=== PATIENT | female | born 1990 | race Caucasian/White ===

== ENCOUNTER → 2017-04-17 | Outpatient (CLI) | payer OTHER ==
[~2017-04-17] MED LIST: CHOL100010 PO; LANS30CA12 PO; RANI300T2 PO; SUCR5SUS PO
--- NOTE | 2017-04-17 11:43 | DIAGNOSTIC IMAGING REPORT ---
ULTRASOUND BILATERAL LOWER EXTREMITY VENOUS CLINICAL HISTORY: Leg pain and swelling of several weeks' duration. COMPARISON STUDY: Left lower extremity venous ultrasound dated 12/03/2013. TECHNIQUE: Real-time, grayscale, and color Doppler sonography of the deep veins of the right and left lower extremity was performed from the inguinal crease to the calf. Compression and augmentation were utilized. FINDINGS: There is no sonographic evidence of deep venous thrombosis identified in the right or left lower extremity. The common femoral, superficial femoral, and popliteal veins are patent and normally compressible bilaterally. The greater saphenous vein and the profunda femoris vein at the junction with the common femoral vein are clear in both legs. The visualized calf veins are patent bilaterally. IMPRESSION: There is no sonographic evidence of deep venous thrombosis identified in the right or left lower extremity. Electronically signed by: Marshall Sneed M.D. 04/17/2017 11:41 AM Dictated Date/Time: 04/17/2017 11:41 AM
--- NOTE | 2017-04-17 12:31 | DIAGNOSTIC IMAGING REPORT ---
ANKLE BRACHIAL INDEX COMPLETE CLINICAL HISTORY: Bilateral leg pain and swelling. COMPARISON STUDY: No previous studies for comparison. FINDINGS: The right ankle to brachial index measured 1.06 when using posterior tibial artery and 1.05 when using the dorsalis pedis. The left ankle to brachial index measured 1.08 when using posterior tibial artery and 1.03 when using the dorsalis pedis. IMPRESSION: Normal bilateral ankle to brachial indices. Electronically signed by: Mir Marcos M.D. 04/17/2017 12:30 PM Dictated Date/Time: 04/17/2017 12:29 PM
== END | disposition home or self-care (01) ==
LOC: C.ULTR 10:49
PROVIDERS: ATTEND Internal Medicine
DX: R60.0 Localized edema (principal)

== ENCOUNTER 2017-06-30 08:22 | Emergency (ER) | payer OTHER ==
[~2017-06-30] VITALS: Ht 157.5 cm; Wt 106.4 kg
[~2017-06-30 08:22] MED LIST changes: -CHOL100010 PO; +ETON1IMP2 SC; +FLVHFA110 INH; -LANS30CA12 PO; -SUCR5SUS PO; +VNTHFA/IN INH
[2017-06-30 08:23] VITALS: TEMP 36.5; Ht 157.5 cm; Wt 106.4 kg
[2017-06-30] MEDS ORDERED: MoRPHine SULFATE 4 MG/ML 1 ML CARP\\VIAL IV STA (09:05)
[2017-06-30] MEDS ORDERED: ONDANSETRON INJ 2 MG/ML 2 ML VIAL IV STA (09:05)
[2017-06-30] MEDS ORDERED: SODIUM CHLORIDE 0.9% 1000ML 1,000 ML IV STA (09:05)
--- NOTE | 2017-06-30 09:14 | EMERGENCY ROOM VISIT NOTE ---
History First contact with patient: 08:54 Chief Complaint: ABDOMINAL PAIN Stated Complaint: ABD PAIN Nursing Triage Summary: pt reports right upper quad pain for 4 days. feels nauseated. no vomiting. has diarrhea History of Present Illness The patient is a 26 year old female who presents to the Emergency Room with complaints of right upper quadrant and epigastric abdominal pain for the past 2 weeks. She reports the pain is intermittent, dull and occasionally becomes more sharp and severe, worse after eating, radiates to her right shoulder blade , currently rates as 6/10. She has associated chills, nausea, one episode of vomiting, and has been having a lot of diarrhea with this as well. She states her symptoms got significantly worse approximately 4 days ago. She denies any abdominal surgeries. She states she does not get periods due to having the Nexplanon implant, but gets regular tests and these have been negative. She denies any headaches, neck pain, fevers, chest pain, SOB, dizziness or passing out, blood in the stool or emesis, dysuria or hematuria, or rash. She reports history of GERD and states that she takes Zantac for this. Review of Systems A complete 10 point review of systems was reviewed with the patient with pertinent positives and negatives as per history of present illness. All else were negative. Past Medical/Surgical History Medical Problems: (1) Asthma (2) Asthma, Unspecified (3) Pneumonia Family History No significant family history Social History Smoking Status: Never Smoker Alcohol Use: none Drug Use: none Marital Status: Housing Status: lives with family Occupation Status: [employer] Current/Historical Medications Scheduled Etonogestrel (Nexplanon), 1 DOSE SC CONTINOUS Ranitidine (Zantac), 300 MG PO BID Sucralfate (Carafate), 10 ML PO TID Scheduled PRN Albuterol Hfa (Ventolin Hfa), 2-4 PUFFS INH Q6H PRN for Shortness of Breath Fluticasone Propionate (Flovent Hfa), 2 PUFFS INH BID PRN for Shortness of Breath Allergies Reviewed in chart Physical Exam Vital Signs Date Time Temp Pulse Resp B/P (MAP) Pulse Ox O2 Delivery O2 Flow Rate FiO2 06/30/17 14:00 68 20 106/55 97 Room Air 06/30/17 13:13 72 06/30/17 12:12 75 20 116/83 98 Room Air 06/30/17 10:25 76 18 188/82 97 Room Air 06/30/17 09:28 82 06/30/17 09:25 78 18 126/75 98 Room Air 06/30/17 08:23 36.5 80 18 129/72 99 Room Air Physical Exam CONSTITUTIONAL: No acute distress. Moderate dehydration. Well appearing and well nourished. HEENT: Normocephalic, atraumatic. Pupils equal, round and reactive to light, EOMI. TMs normal. Pharynx normal. Dry mucus membranes. NECK: Supple, full active range of motion without discomfort. RESPIRATORY: Clear to auscultation bilaterally with no wheezing, crackles, rhonchi or stridor. Equal expansion bilaterally. CARDIOVASCULAR: Regular rate and rhythm with no murmurs, rubs or gallops. Normal peripheral perfusion. No edema. GASTROINTESTINAL: Moderate tenderness in the epigastric and RUQ abdomen. No guarding or rebound tenderness. No palpable masses, no HSM. Soft and nondistended. Hyperactive bowel sounds present in all quadrants. MUSCULOSKELETAL: Full range of motion of all joints without discomfort. INTEGUMENTARY: No rash or other significant dermatologic conditions noted. NEUROLOGIC: Alert and oriented X 4 with normal affect. No focal neurologic deficits noted. Normal speech, normal gait observed. Medical Decision & Procedures ER Provider Diagnostic Interpretation: CHEST 2 VIEWS ROUTINE CLINICAL HISTORY: 26 years-old Female presenting with ABDOMINAL PAIN/GI. TECHNIQUE: PA and lateral views of the chest were obtained. COMPARISON: CTA from 09/28/2015 and chest x-ray from 09/28/2015. FINDINGS: Cardiomediastinal silhouette normal. Lungs and pleural spaces clear. Osseous structures normal. Upper abdomen normal. IMPRESSION: 1. No acute cardiopulmonary disease. ----- ABDOMINAL ULTRASOUND, RIGHT UPPER QUADRANT HISTORY: Right upper quadrant abdominal pain.. COMPARISON: Abdominal ultrasound 12/24/2015. FINDINGS: Pancreas: The pancreas demonstrates a normal echotexture. Liver: Unremarkable. Gallbladder: No gallbladder wall thickening. No gallstones. CBD: 4 mm. Right kidney: No hydronephrosis. IMPRESSION: No significant abnormality identified within the right upper quadrant. Laboratory Results 06/30/17 09:15 Red Blood Count 4.38, Mean Corpuscular Volume 87.2, Mean Corpuscular Hemoglobin 30.1, Mean Corpuscular Hemoglobin Concent 34.6, Mean Platelet Volume 9.6, Neutrophils (%) (Auto) 60.0, Lymphocytes (%) (Auto) 28.1, Monocytes (%) (Auto) 7.7, Eosinophils (%) (Auto) 3.4, Basophils (%) (Auto) 0.4, Neutrophils # (Auto) 6.06, Lymphocytes # (Auto) 2.84, Monocytes # (Auto) 0.78, Eosinophils # (Auto) 0.34, Basophils # (Auto) 0.04 06/30/17 09:15 Test 06/30/17 05:45 06/30/17 09:15 Urine Color YELLOW Urine Appearance CLEAR (CLEAR) Urine pH 7.5 (4.5-7.5) Urine Specific [place] 1.015 (1.000-1.030) Urine Protein NEG (NEG) Urine Glucose (UA) NEG (NEG) Urine Ketones NEG (NEG) Urine Occult Blood NEG (NEG) Urine Nitrite NEG (NEG) Urine Bilirubin NEG (NEG) Urine Urobilinogen NEG (NEG) Urine Leukocyte Esterase NEG (NEG) Urine Test NEG (NEG) White Blood Count 10.10 K/uL (4.8-10.8) Red Blood Count 4.38 M/uL (4.2-5.4) Hemoglobin 13.2 g/dL (12.0-16.0) Hematocrit 38.2 % (37-47) Mean Corpuscular Volume 87.2 fL (80-100) Mean Corpuscular Hemoglobin 30.1 pg (25-34) Mean Corpuscular Hemoglobin Concent 34.6 g/dl (32-36) Platelet Count 411 K/uL (130-400) Mean Platelet Volume 9.6 fL (7.4-10.4) Neutrophils (%) (Auto) 60.0 % Lymphocytes (%) (Auto) 28.1 % Monocytes (%) (Auto) 7.7 % Eosinophils (%) (Auto) 3.4 % Basophils (%) (Auto) 0.4 % Neutrophils # (Auto) 6.06 K/uL (1.4-6.5) Lymphocytes # (Auto) 2.84 K/uL (1.2-3.4) Monocytes # (Auto) 0.78 K/uL (0.11-0.59) Eosinophils # (Auto) 0.34 K/uL (0-0.5) Basophils # (Auto) 0.04 K/uL (0-0.2) RDW Standard Deviation 43.5 fL (36.4-46.3) RDW Coefficient of Variation 13.7 % (11.5-14.5) Immature Granulocyte % (Auto) 0.4 % Immature Granulocyte # (Auto) 0.04 K/uL (0.00-0.02) Anion Gap 3.0 mmol/L (3-11) Est Creatinine Clear Calc Drug Dose 107.7 ml/min Estimated GFR () 101.6 Estimated GFR (Non- 87.6 BUN/Creatinine Ratio 10.1 (10-20) Calcium Level 8.8 mg/dl (8.5-10.1) Total Bilirubin 0.3 mg/dl (0.2-1) Direct Bilirubin < 0.1 mg/dl (0-0.2) Aspartate Amino Transf (AST/SGOT) 17 U/L (15-37) Alanine Aminotransferase (ALT/SGPT) 33 U/L (12-78) Alkaline Phosphatase 74 U/L (45-117) Total Protein 7.5 gm/dl (6.4-8.2) Albumin 3.5 gm/dl (3.4-5.0) Lipase 168 U/L (73-393) Medications Administered Medications (Trade) Dose Ordered Sig/Warren Route Start Time Stop Time Status Last Admin Dose Admin Ondansetron HCl (Zofran Inj) 4 mg NOW STAT IV 06/30/17 09:05 06/30/17 09:08 DC 06/30/17 09:21 4 MG Sodium Chloride 1,000 ml @ 999 mls/hr Q1H1M STAT IV 06/30/17 09:05 06/30/17 10:05 DC 06/30/17 09:20 999 MLS/HR Morphine Sulfate (MoRPHine SULFATE INJ) 4 mg NOW STAT IV 06/30/17 09:05 06/30/17 09:08 DC 06/30/17 09:21 4 MG Sucralfate (Carafate Susp) 1 gm NOW STAT PO 06/30/17 12:07 06/30/17 12:08 DC 06/30/17 12:42 1 GM Medical Decision CC: Patient presenting with complaint of upper abdominal pain with nausea/ vomiting/diarrhea Interpretation of Labs: No leukocytosis, no anemia, no significant electrolyte abnormalities, normal renal function, normal liver enzymes and lipase. UA negative for infection. Urine negative. Differential Diagnosis: Includes, but not limited to gastroenteritis, gastritis , peptic ulcer disease, cholecystitis, cholelithiasis, pancreatitis, bowel obstruction, dehydration, electrolyte abnormality, among others. Medication Reconciliation: I attest that I have personally reviewed the patient' s current medication list. Vital signs review: I reviewed the patient's vital signs and interpret them as follows: T: Afebrile; BP: Normotensive; HR: Within normal limits; RR: Within normal limits; Pulse Ox: Within normal limits on room air. Blood pressure screening: The patient was found to have normal blood pressure on screening and does not require follow-up for repeat blood pressure check. Summary: Patient was evaluated at bedside, history and physical exam performed. Patient is alert and oriented, no acute distress, resting comfortably in the stretcher. Patient does have moderate tenderness to palpation of the epigastric and right upper quadrant abdomen, no rebound or guarding. No masses. Does appear to be somewhat dehydrated with dry mucous membranes and reported decreased urine output. Orders were placed at bedside for labs, UA and urine , IV fluids for hydration, right upper quadrant ultrasound to evaluate for gallbladder disease. Patient discussed with Dr. Ludwig, who agrees with my assessment and plan. Labs reviewed as above, no acute abnormalities. She is not . Ultrasound imaging reviewed, appears to be a normal gallbladder with no evidence of cholecystitis today. Patient reassessed multiple times throughout ED stay, she reports improved symptoms after medications and IV fluids. She was given Carafate with continued improvement. Rx for Carafate sent to pharmacy. Given the negative workup today, I suspect her symptoms are related to gastroenteritis. I did encourage her to follow up with her PCP, and suggested referral to a direct of real estate if her symptoms persist. Patient was also given strict return precautions should her symptoms worsen, she verbalized understanding. Patient was discharged home in stable condition and ambulatory. Impression Primary Impression: RUQ abdominal pain Additional Impression: Nausea, vomiting, and diarrhea Departure Information Dispostion Home / Self-Care Condition GOOD Prescriptions Sucralfate (CARAFATE) 1 Gm/10 Ml Mi 10 ML PO TID for 14 Days, #420 ML Prov: Shanell Cardenas CRNP 12/19/17 Referrals [facility] (PCP) Patient Instructions ED Diet Vomiting Diarrhea, ED Epigastric Pain [facility], ED Gastroenteritis Vs Food Poison, My [facility] Additional Instructions You have been treated in the Emergency Department your Abdominal Pain, nausea, vomiting, and diarrhea. Laboratory results and imaging studies have ruled out any emergent causes for your symptoms which would warrant admission or surgery. You have been prescribed Carafate to be taken 30 minutes prior to each meal. This medication will help to coat the lining of her stomach, and should help with your stomach pain. Take as prescribed. For additional pain control, you can use the following [id number] medicines (if >12 yo): - Regular strength (325mg/tab) Tylenol (acetaminophen) 2 tabs every 4-6 hours as needed. Do not exceed 10 tablets in a 24 hour period. Avoid taking more than 3000 mg of Tylenol per day. This includes any other sources of acetaminophen you may take on a regular basis. Avoid NSAIDs like ibuprofen, Aleve, Advil, aspirin, etc., as these may further aggravate her symptoms. Drink plenty of fluids to stay well hydrated. As with any trip to the Emergency Department, you should follow-up with your Primary Care Provider in the next 2-3 days if your symptoms have not improved. You may benefit from referral to see a direct of real estate for symptoms persist, you should discuss this with her PCP. Return to the emergency department if your symptoms persist despite treatment plan outlined above or if the following symptoms occur: Severe worsening abdominal pain, fevers > 101.5, worsening nausea/vomiting, blood in your stool or urine, dizziness or passing out, or any other concerns. Work Instructions Return To Work: 1 day [employer]
[2017-06-30 09:25] LABS: BASO % 0.4 %; BASO ABS # 0.04 K/uL (0-0.2); COMPLETE YES; EOS % 3.4 %; HEMATOCRIT 38.2 % (37-47); IG% 0.4 %; LYMPH % 28.1 %; LYMPH ABS # 2.84 K/uL (1.2-3.4); MEAN CELL VOLUME 87.2 fL (80-100); MEAN CORPUSCULAR HEMOGLOBIN 30.1 pg (25-34); MEAN CORPUSCULAR HGB CONC 34.6 g/dl (32-36); MEAN PLATELET VOLUME 9.6 fL (7.4-10.4); MONO % 7.7 %; PLATELET COUNT 411 K/uL (130-400); RED BLOOD COUNT 4.38 M/uL (4.2-5.4)
[2017-06-30 09:29] LABS: URINE APPEARANCE CLEAR (CLEAR); URINE BILIRUBIN NEG (NEG); URINE COLOR YELLOW; URINE NITRITE NEG (NEG); URINE PH 7.5 (4.5-7.5); URINE SPECIFIC GRAVITY 1.015 (1.000-1.030); UROBILINOGEN NEG (NEG)
[2017-06-30 09:40] LABS: MANUAL MICROSCOPIC REQUIRED? NO; REVIEW REQ? NO
[2017-06-30 09:43] LABS: ALT/SGPT 33 U/L (12-78); AST/SGOT 17 U/L (15-37); BLOOD UREA NITROGEN 9 mg/dl (7-18); BUN/CREATININE RATIO 10.1 (10-20); CALCIUM 8.8 mg/dl (8.5-10.1); CARBON DIOXIDE 27 mmol/L (21-32); CHLORIDE 108 mmol/L (98-107); GLUCOSE 86 mg/dl (70-99); POTASSIUM 3.9 mmol/L (3.5-5.1); SODIUM 138 mmol/L (136-145)
[2017-06-30 09:47] LABS: ALKALINE PHOSPHATASE 74 U/L (45-117)
--- NOTE | 2017-06-30 10:04 | DIAGNOSTIC IMAGING REPORT ---
CHEST 2 VIEWS ROUTINE CLINICAL HISTORY: 26 years-old Female presenting with ABDOMINAL PAIN/GI. TECHNIQUE: PA and lateral views of the chest were obtained. COMPARISON: CTA from 09/28/2015 and chest x-ray from 09/28/2015. FINDINGS: Cardiomediastinal silhouette normal. Lungs and pleural spaces clear. Osseous structures normal. Upper abdomen normal. IMPRESSION: 1. No acute cardiopulmonary disease. Electronically signed by: Reji Harley M.D. 06/30/2017 10:02 AM Dictated Date/Time: 06/30/2017 10:01 AM
--- NOTE | 2017-06-30 11:13 | DIAGNOSTIC IMAGING REPORT ---
ABDOMINAL ULTRASOUND, RIGHT UPPER QUADRANT HISTORY: Right upper quadrant abdominal pain.. COMPARISON: Abdominal ultrasound 12/24/2015. FINDINGS: Pancreas: The pancreas demonstrates a normal echotexture. Liver: Unremarkable. Gallbladder: No gallbladder wall thickening. No gallstones. CBD: 4 mm. Right kidney: No hydronephrosis. IMPRESSION: No significant abnormality identified within the right upper quadrant. Electronically signed by: Waqar Dumont M.D. 06/30/2017 11:11 AM Dictated Date/Time: 06/30/2017 11:10 AM
[2017-06-30] MEDS ORDERED: SUCRALFATE 1 GM/10 ML UDC PO STA (12:07)
[2017-06-30 14:00] VITALS: BP 106/55; PULSE 68; O2SAT 97
[2017-06-30] MEDS ORDERED: CRFL PO (14:02)
== END 2017-06-30 14:30 | disposition home or self-care (01) ==
LOC: C.EDB 08:23 → C.EDA 14:30
DX: R10.11 Right upper quadrant pain (principal); R11.2 Nausea with vomiting, unspecified; R19.7 Diarrhea, unspecified; K21.9 Gastro-esophageal reflux disease without esophagitis; J45.909 Unspecified asthma, uncomplicated

== ENCOUNTER → 2017-10-16 | Outpatient (CLI) | payer OTHER | END | disposition home or self-care (01) | LOC: C.LAB1850 09:17 | PROVIDERS: ATTEND Internal Medicine Rheumatology | DX: M46.1 Sacroiliitis, not elsewhere classified (principal); M76.50 Patellar tendinitis, unspecified knee; E55.9 Vitamin D deficiency, unspecified; R78.0 Finding of alcohol in blood ==

== ENCOUNTER → 2017-10-23 | Outpatient (CLI) | payer OTHER ==
--- NOTE | 2017-10-23 10:50 | DIAGNOSTIC IMAGING REPORT ---
MRI OF THE SACROILIAC JOINTS WITHOUT IV CONTRAST CLINICAL HISTORY: Sacroiliitis. COMPARISON STUDY: Pelvic CT dated 06/11/2016. TECHNIQUE: MRI of the sacroiliac joints is performed utilizing various T1 and T2-weighted sequences in the axial and coronal planes. IV contrast was not administered for this examination. FINDINGS: Normal marrow signal intensity is preserved throughout the sacrum and bony pelvis. The sacroiliac joints are normal in appearance. No fluid or marrow edema is identified. There is no evidence of erosive change. The sacral neural foramina are normal as visualized. The surrounding musculature is normal in bulk and signal intensity. The visualized pelvic viscera is grossly unremarkable but incompletely evaluated. IMPRESSION: Normal MRI assessment of the sacroiliac joints. Dictated: 10/23/2017 10:27 AM Transcribed: 10/23/2017 10:49 AM [email or web address] Electronically signed by: Marshall Sneed M.D. 10/23/2017 11:02 AM Dictated Date/Time: 10/23/2017 10:27 AM
== END | disposition home or self-care (01) ==
LOC: C.MRI 09:43
PROVIDERS: ATTEND Internal Medicine Rheumatology
DX: E55.9 Vitamin D deficiency, unspecified (principal); M46.1 Sacroiliitis, not elsewhere classified; M76.50 Patellar tendinitis, unspecified knee; R70.0 Elevated erythrocyte sedimentation rate